=== PATIENT | female | born 1960 | race Two or more races ===

== ENCOUNTER 2022-07-03 08:14 | Outpatient (CLI) | payer OTHER | END 2022-07-03 08:20 | disposition home or self-care (01) | LOC: SONOGRAMA 08:14 | PROVIDERS: ATTEND Pathology Anatomic Pathology | DX: D34 Benign neoplasm of thyroid gland (principal); E04.9 Nontoxic goiter, unspecified; E04.2 Nontoxic multinodular goiter ==

== ENCOUNTER 2023-09-06 08:04 | Outpatient (CLI) | payer OTHER | END 2023-09-06 08:08 | disposition home or self-care (01) | LOC: SONOGRAMA 08:04 | PROVIDERS: ATTEND Pathology Anatomic Pathology & Clinical Pathology | DX: D34 Benign neoplasm of thyroid gland (principal); E07.89 Other specified disorders of thyroid; E04.2 Nontoxic multinodular goiter ==